=== PATIENT | female | born 1985 | race African-American/Black ===

== ENCOUNTER 2018-10-31 18:55 | Inpatient (IN) | payer OTHER ==
[2018-10-31] MEDS: ELECTROLYTE-148 SOLN 1,000 ML IV SCH (19:45)
[2018-10-31 19:48] VITALS: BMI 39.6
[2018-10-31] MEDS ORDERED: DINOPROSTONE 10 MG VAGINAL SUPPOSITORY VG ONE (20:00)
[2018-10-31] MEDS ORDERED: LABETALOL HCL 5 MG/1 ML (100MG/20 ML VIAL) ONE (20:12)
[2018-10-31 20:15] LABS: BASO % 0.6 % (0-2.0); EOS % 0.5 % (0-4.5); HEMATOCRIT 34.7 % (32.4-45.2); INR 0.94 (0.83-1.09); MCH 31.1 pg (25.7-33.7); MCHC 34.5 g/dl (32.0-36.0); MEAN PLT VOLUME 9.5 fl (7.5-11.1); MONO % 10.3 % (3.8-10.2); NEUT % 66.6 % (42.8-82.8); PLATELET COUNT 232 K/MM3 (134-434); PROTHROMBIN TIME (PATIENT) 11.1 SEC (9.7-13.0); RBC 3.85 M/mm3 (3.60-5.2); RDW 15.6 % (11.6-15.6); RETICULOCYTES 2.69 % (0.5-1.5); WHITE BLOOD COUNT 10.2 K/mm3 (4.0-10.0)
[2018-10-31 20:18] LABS: ACTIVATED PTT 31.1 SECONDS (25.2-36.5)
[2018-10-31] MEDS ORDERED: LABETALOL HCL 5 MG/1 ML (100MG/20 ML VIAL) IVPUSH ONE (20:29)
--- NOTE | 2018-10-31 20:34 | HP ---
"Past Medical History - Admission History of Present Illness: 32 yo @ 37 0/7 wks, EDC 11/21/2018 presenting for induction of labor for gestational hypertension complicated by: 1. gestational hypertension, likely underlying chronic hypertension Elevated BPs noted first trimester, with continued elevation throughout the Recent Bps in the office 160-170s / 90-100s 24 H urine protein: 66 (06/03/2018); 171mg (08/25/2018); 294 (09/18/2018); 188 (10/15) 2. Obesity - Starting BMI 34 22 lb wt gain this EFW 10/29/2018 - 3500 (91%ile) Early GCT 156 --> GTT 77|165|151|107 GTT 26 wks 76|167|151|115 GTT 37 wks 16|163|162*|115 Patient presents for induction of labor for worsening gestational hypertension. She reports movement, denies leakage of fluid, vaginal bleeding or contractions. She denies headache, change in vision, RUQ pain or scotomata. History Source: Patient Limitations to Obtaining History: No Limitations - Past Medical History Cardiovascular: Yes: HTN (possible cHTN) ...: 1 ...Para: 0 ...Term: 0 ...: 0 ...Spon : 0 ...Induced : 0 ...Multiple Gestation: 0 ...LMP: 02/15/18 ... Weeks Gestation by Dates: 37.1 ...EDC by Dates: 11/22/18 ...EDC by Sono: 11/21/18 Heme/Onc: No: Anemia - Past Surgical History Past Surgical History: Yes: None Hx Myomectomy: No Hx Transabdominal Cerclage: No - Smoking History Smoking history: Never smoked - Alcohol/Substance Use Hx Alcohol Use: No History of Substance Use: reports: None - Social History History of Recent Travel: No Home Medications - Allergies Allergies/Adverse Reactions: Allergies Allergy/AdvReac Type Severity Reaction Status Date / Time No Known Allergies Allergy Verified 10/09/18 18:15 - Home Medications Home Medications: Ambulatory Orders Prenat 115/Iron Fum/Folic/Dss [ 19 Tablet] 1 tab PO DAILY 10/09/18 Family Disease History - Family Disease History Family History: Denies Review of Systems - Review of Systems Constitutional: reports: No Symptoms Cardiovascular: reports: No Symptoms Respiratory: reports: No Symptoms Gastrointestinal: reports: No Symptoms Musculoskeletal: reports: No Symptoms Neurological: reports: No Symptoms Psychiatric: reports: No Symptoms Physical Exam - Maternity Vital Signs: Vital Signs Temperature 98.5 F 10/31/18 18:55 Pulse Rate 97 H 10/31/18 18:55 Respiratory Rate 18 10/31/18 18:55 Blood Pressure 180/102 H 10/31/18 18:55 O2 Sat by Pulse Oximetry (%) Constitutional: Yes: Well Nourished, No Distress, Calm Cardiovascular: Yes: Regular Rate and Rhythm Lungs: Clear to auscultation - Abdominal Exam/OB Fundal Height: 40 Number of Fetuses: Single Contractions: Yes Regularity: Irregular Heart Rate (range): 140 Category: I Accelerations: Non-Uniform Decelerations: None - Vaginal Exam/OB Vaginal Bleediing: No Dilatation (cm): 1 Effacement (%): 20 Amniotic Membrane Status: Intact Meconium: Light Station: -4 - Labs Lab Results: CBC, BMP 10/31/18 19:50 PNL - O positive, antibody negative; RPR NR; HIV neg; HBs Ag neg; HCV negative; Hb Sepideh AA; Parvo non-immune; Sequential 1&2 WNL; declines inheritest; GCT/GTT as above; GBS positive Hemorrhage Risk Assessment - Risk Factors Medium Risk Factors: Yes: None High Risk Factors: Yes: None Risk Score: 1 Risk Level: Medium Risk Assessment/Plan 32 yo @ 37 0/7 wks induction of labor for gestational hypertension 1. Admit to L&D 2. Consents reviewed and signed Risks of induction including but not limited to failure, delivery, uterine hyperstimulation leading to heart rate changes discussed. Cervidil placed in posterior fornix. 3. Elevated Bps noted, currently asymptomatic Labetalol 20 mg IV push given Denies complaitns 4. GBS positive, will start ampicillin in active labor 5. Will offer pain medication upon patient request 6. Will proceed with expectant management"
[2018-10-31 20:35] LABS: ALBUMIN 2.6 g/dl (3.4-5.0); BILIRUBIN,TOTAL 0.3 mg/dL (0.2-1); BLOOD UREA NITROGEN 3.7 mg/dL (7-18); CREATININE 0.6 mg/dL (0.55-1.3); POTASSIUM 3.6 mmol/L (3.5-5.1); TOT PROT 6.4 g/dl (6.4-8.2); URIC ACID 4.8 mg/dL (2.6-7.2)
[2018-10-31 21:20] LABS: URINE APPEARANCE CLEAR; URINE BILIRUBIN NEGATIVE (NEGATIVE); URINE COLOR YELLOW; URINE GLUCOSE (UA) NEGATIVE (NEGATIVE); URINE KETONE NEGATIVE (NEGATIVE); URINE LEUK ESTERASE NEGATIVE (NEGATIVE); URINE NITRITE NEGATIVE (NEGATIVE); URINE PROTEIN NEGATIVE (NEGATIVE)
[2018-11-01] MEDS ORDERED: OXYTOCIN 30 UNITS in 0.9% NS 30 UNIT/500 ML INFUS.BAG IVPB ONE (11:20)
[2018-11-01] MEDS: ELECTROLYTE-148 SOLN 1,000 ML IV SCH ×2 (11:33→20:00)
[2018-11-01] MEDS ORDERED: AMPICILLIN - 2 GM in SODIUM CHLORIDE 100 ML IVPB ONE (11:40)
[2018-11-01] MEDS ORDERED: OXYTOCIN 30 UNITS in 0.9% NS 30 UNIT/500 ML INFUS.BAG IVPB SCH (11:45)
[2018-11-01] MEDS ORDERED: SODIUM CHLORIDE 100 ML IVPB ONE (11:47)
[2018-11-01] MEDS ORDERED: AMPICILLIN SODIUM 2 GM VIAL ONE (11:47)
--- NOTE | 2018-11-01 11:50 | PN ---
Ante-Partal Exam - Subjective Subjective: Pt w/o complaints. She denies any BALLESTEROS, scotoma, abdominal pain. She is not feeling contractions. Pt was induced last night due to chronic HTN with likely superimposed preeclampsia. Her BP in-office was 170/100 x 4. I discussed thec ase with MFM (Dr. Bah) yesterday and decision was to induce labor. Vital Signs: Vital Signs Temperature 98.2 F 11/01/18 11:35 Pulse Rate 85 11/01/18 11:15 Respiratory Rate 20 11/01/18 11:15 Blood Pressure 141/90 11/01/18 11:15 O2 Sat by Pulse Oximetry (%) Bleeding: No Headache: No Visual changes: No Right upper quadrant pain: No Pain (scale 1-10): 0 - Contractions Contractions: Yes Regularity: Irregular Intensity: Unaware Monitor Mode: External - Exam during Labor Heart Rate: 140 Variability: Moderate Heart Rate Location: Midline Category: I Monitor Accelerations: Present Monitor Decelerations: None Exam: Vaginal Dilatation (cm): 2 Effacement (%): 50 Amniotic Membrane Status: Intact Presentation: Vertex Station: -3 Remarks: Adequate gynecoid pelvimetry. EFW ~3500gm by Edin's. - Intrapartum Hemorrhage Risk Medium Risk Factors: None High Risk Factors: None Risk Score: 0 Risk Level: Low Risk - Assessment/Plan Assessment/Plan: 32yo P0 with at EGA 37w 1d admitted for labor indx. Pt with chronic HTN and superimposed PEC. BP is in 140-150/90 range. No other sx's of severe PEC. Fetus with Category I tracing. Pt is not in labor. Plan to induce labor with pitocin.
[2018-11-01] MEDS ORDERED: AMPICILLIN SODIUM 1 GM VIAL ONE ×3 (15:19→23:42)
[2018-11-01] MEDS: AMPICILLIN - 1 GM in SODIUM CHLORIDE 100 ML IVPB SCH ×3 (15:39→23:45)
--- NOTE | 2018-11-01 22:38 | PN ---
Ante-Partal Exam - Subjective Subjective: Pt w/o complaints. She reports feeling occasional mild contractions. Vital Signs: Vital Signs Temperature 98.4 F 11/01/18 20:00 Pulse Rate 90 11/01/18 21:00 Respiratory Rate 20 11/01/18 21:00 Blood Pressure 150/97 11/01/18 21:00 O2 Sat by Pulse Oximetry (%) Bleeding: No Headache: No Visual changes: No Right upper quadrant pain: No Pain (scale 1-10): 1 - Contractions Contractions: Yes Regularity: Regular Intensity: Mild Monitor Mode: External - Exam during Labor Heart Rate: 130 Variability: Moderate Heart Rate Location: Midline Category: I Monitor Accelerations: Present Monitor Decelerations: None Exam: Vaginal Dilatation (cm): 3 Effacement (%): 50 Amniotic Membrane Status: Ruptured (AROM) Amniotic Fluid: Clear Presentation: Vertex Station: -3 - Intrapartum Hemorrhage Risk Medium Risk Factors: None High Risk Factors: None Risk Score: 0 Risk Level: Low Risk - Assessment/Plan Assessment/Plan: BP is w/in acceptable range. Pt w/o sx's of PEC. Fetus with Category I tracing. AROM done. Plan to monitor labor.
[2018-11-02] MEDS ORDERED: FENTANYL/BUPIVACAINE/NS/PF - PCEA - 50 ML DISP.SYRIN EP ONE ×3 (01:19→07:57)
[2018-11-02] MEDS ORDERED: NALOXONE HCL 0.4 MG/ML VIAL IVPUSH PRN (01:32)
[2018-11-02] MEDS: FENTANYL/BUPIVACAINE/NS/PF - PCEA - 50 ML DISP.SYRIN EP SCH ×2 (01:55→08:05)
[2018-11-02] MEDS ORDERED: ELECTROLYTE-148 SOLN 1,000 ML IV ONE (03:30)
[2018-11-02] MEDS ORDERED: AMPICILLIN SODIUM 1 GM VIAL ONE ×2 (03:38→07:14)
[2018-11-02] MEDS: AMPICILLIN - 1 GM in SODIUM CHLORIDE 100 ML IVPB SCH ×2 (03:45→07:23)
[2018-11-02] MEDS ORDERED: CITRIC ACID/SODIUM CITRATE 30 ML UNIT-DOSE CUP PO ONE (08:30)
--- NOTE | 2018-11-02 08:43 | PN ---
Ante-Partal Exam - Subjective Subjective: No complaints. Pt feels contractions. Vital Signs: Vital Signs Temperature 98.6 F 11/02/18 06:00 Pulse Rate 98 H 11/02/18 07:00 Respiratory Rate 20 11/02/18 08:05 Blood Pressure 151/92 11/02/18 07:00 O2 Sat by Pulse Oximetry (%) 100 11/02/18 08:05 Bleeding: No Headache: No Visual changes: No Right upper quadrant pain: No Pain (scale 1-10): 5 - Contractions Contractions: Yes Regularity: Regular Intensity: Moderate Monitor Mode: External - Exam during Labor Heart Rate: 150 Variability: Moderate Heart Rate Location: Midline Category: II Monitor Accelerations: Present Monitor Decelerations: Late Exam: Vaginal Dilatation (cm): 5 Effacement (%): 80 Amniotic Membrane Status: Leaking Presentation: Vertex Station: -2 - Intrapartum Hemorrhage Risk Medium Risk Factors: None High Risk Factors: None Risk Score: 0 Risk Level: Low Risk - Assessment/Plan Assessment/Plan: Late decels not. Pitocin turned off and the late decels resolved. The tracing is now Category I. Pt is in early active labor. We discussed treatment options and I advised C/S. R /b/a of C/S were discussed.
[2018-11-02] MEDS ORDERED: LIDO 2%/EPI 1:200000 PRESRVFRE (20 ML SDVIAL) ONE (08:47)
[2018-11-02] MEDS ORDERED: ceFAZolin SODIUM 1 GM VIAL ONE (09:09)
[2018-11-02] MEDS ORDERED: OXYTOCIN 10 UNITS/ML VIAL ONE (09:24)
[2018-11-02] MEDS ORDERED: BUPIVACAINE HCL/PF 2.5 MG/ML - 30 ML VIAL IJ ONE (09:26)
[2018-11-02] MEDS ORDERED: OXYTOCIN 20 UNITS in 0.9% NS 20 UNIT/1,000 ML INFUS.BAG IV ONE (09:34)
[2018-11-02] MEDS ORDERED: morphine SULFATE/PF 0.5 MG/ML (2cc Syringe - QUVA) ONE ×3 (09:48)
[2018-11-02] MEDS ORDERED: IBUPROFEN 800 MG/8 ML IJ IVPB PRN (10:21)
[2018-11-02] MEDS ORDERED: oxyCODONE HCL 5 MG TABLET PO PRN (10:21)
[2018-11-02] MEDS ORDERED: BENZOCAINE 28 GM HEMORRHOIDAL OINTMENT TP PRN (10:21)
[2018-11-02] MEDS ORDERED: BENZOCAINE 20% 57 GM BOTTLE TP PRN (10:21)
[2018-11-02] MEDS ORDERED: WITCH HAZEL 50% (TUCKS) 40 PAD/JAR PAD TP PRN (10:21)
--- NOTE | 2018-11-02 10:34 | OP ---
Operative Note - Note: Operative Date: 11/02/18 Pre-Operative Diagnosis: at EGA 37w2d with cHTN and superimposed PEC. Non-reassuring FHT Operation: Primary LT C/S Findings: Live baby boy in vtx presentation. No meconium in amniotic fluid. 9-9. Wt 7lb 7oz. Normal uterus, ovaries, tubes. Post-Operative Diagnosis: Same as Pre-op Surgeon: Albert Meadows Manager Floor: Sarina Del Valle Anesthesiologist/SURGICAL RESIDENT: Rayshawn Wells Anesthesia: Epidural Specimens Removed: Placenta Estimated Blood Loss (mls): 700 Drains & Tubes with Location: Ramos cath Drains, Volume Out (mls): 200 Blood Volume Replaced (mls): 0 Fluid Volume Replaced (mls): 1,000 Operative Report Dictated: Yes
[2018-11-02] MEDS ORDERED: ONDANSETRON 4 MG/2 ML VIAL IVPUSH PRN (10:57)
[2018-11-02] MEDS: OXYTOCIN 20 UNITS in 0.9% NS 20 UNIT/1,000 ML INFUS.BAG IV SCH ×2 (11:07→19:13)
[2018-11-02] MEDS: NIFEdipine E.R. 30 MG TABLET (FP) PO SCH (12:38)
--- NOTE | 2018-11-02 12:49 | OP ---
DATE OF OPERATION: 11/02/2018 PREOPERATIVE DIAGNOSIS: at estimated gestational age of 37 weeks 2 days with chronic hypertension and superimposed preeclampsia, non-reassuring heart tracing. POSTOPERATIVE DIAGNOSIS: at estimated gestational age of 37 weeks 2 days with chronic hypertension and superimposed preeclampsia, non-reassuring heart tracing. PROCEDURE: Primary low-transverse section via Pfannenstiel skin incision. SURGEON: Albert Meadows MD GARMENT SEWING MACHINE OPERATOR: Sarina Del Valle MD ANESTHESIOLOGIST: Rayshawn Wells MD ANESTHESIA: Epidural. COMPLICATIONS: None. ESTIMATED BLOOD LOSS: 700 mL. URINE OUTPUT: 200 mL. INTRAVENOUS FLUIDS: 1000 mL. PATHOLOGY: Placenta. FINDINGS: Live baby boy in vertex presentation, no meconium in amniotic fluid, Apgars 9 and 9, weight 7 pounds 7 ounces. Normal uterus, ovaries, and fallopian tubes. DESCRIPTION OF PROCEDURE: The patient was met preoperatively. Risks, benefits, and alternatives of surgery were discussed in detail. All questions were answered. The patient was brought to the OR with IV running. She was placed on a surgical table in the supine position with a leftward tilt. The level of epidural anesthesia was checked and found to be adequate. The patient was prepped and draped in the usual sterile fashion. A Ramos catheter was left to drain to gravity. The timeout was conducted as per standard protocol. The surgeons then proceeded with the operation. A Pfannenstiel skin incision was made with the knife approximately 2 cm above the pubic symphysis. The incision was carried down to the level of fascia. The fascia was incised in the midline. The incision was extended bilaterally using Schreiber scissors. The fascia was dissected away from the rectus muscles superiorly and inferiorly using sharp dissection. The rectus muscles were in the midline using blunt dissection. The peritoneum was identified and entered sharply. The peritoneal incision was extended superiorly and inferiorly using Metzenbaum scissors. The bladder peritoneum was dissected away from the lower uterine segment using sharp dissection. The bladder was reflected downwards with a Austin retractor. The lower uterine segment was incised transversely. The incision was extended bilaterally. The baby was then delivered from vertex presentation and without complications. The baby's mouth and nose were suctioned at delivery. The baby was crying spontaneously. The umbilical cord was clamped and cut. The baby was handed to the awaiting post closing specialist. A segment of the umbilical cord was secured for umbilical cord gases. The placenta was then delivered manually and without complications. The uterus was cleared of all clots and debris using laparotomy laps. The uterine incision was repaired using a 0 Biosyn suture with a running and locking stitch. Good hemostasis was noted. The uterine incision was then imbricated using a secondary layer of closure with a 0 Biosyn suture. Once again good hemostasis was confirmed. The bladder peritoneum was closed with a 0 Biosyn suture. The operative site was irrigated using copious amounts of normal saline. Once again, good hemostasis was confirmed. The parietal peritoneum was closed using a 2-0 Vicryl suture. The rectus muscles were approximated using several interrupted 2-0 Vicryl sutures. The fascia was closed using a 0 Vicryl suture with a running stitch. The subcutaneous adipose tissues and Oj fascia were closed using several interrupted 0 Vicryl sutures. The skin was closed with a 4-0 Biosyn suture using a subcutaneous stitch. The patient tolerated the procedure well. Sponge, lap, needle counts were correct. The patient then transferred to recovery room in stable condition and awake. July [id number]
[2018-11-02] MEDS ORDERED: LABETALOL HCL 200 MG TABLET (FP) PO STA (18:54)
[2018-11-03] MEDS: LABETALOL HCL 200 MG TABLET (FP) PO PRN ×2 (06:42→18:33)
[2018-11-03 08:53] LABS: BASO % 0.3 % (0-2.0); EOS % 0.1 % (0-4.5); HEMATOCRIT 34.7 % (32.4-45.2); HEMOGLOBIN 11.6 GM/dL (10.7-15.3); LYMPH % 9.3 % (8-40); MCH 30.3 pg (25.7-33.7); MCHC 33.5 g/dl (32.0-36.0); MEAN CELL VOLUME 90.4 fl (80-96); MEAN PLT VOLUME 9.7 fl (7.5-11.1); MONO % 6.7 % (3.8-10.2); NEUT % 83.6 % (42.8-82.8); PLATELET COUNT 221 K/MM3 (134-434); RBC 3.84 M/mm3 (3.60-5.2); RDW 15.3 % (11.6-15.6); WHITE BLOOD COUNT 18.3 K/mm3 (4.0-10.0)
[2018-11-03] MEDS: ENOXAPARIN NA (PORCINE) 40 MG/0.4 ML DISP.SYRIN SQ SCH (09:15)
[2018-11-03] MEDS: NIFEdipine E.R. 30 MG TABLET (FP) PO SCH (09:15)
[2018-11-03] MEDS: PRENATAL VITAMINS W/ FOLIC ACID TABLET (FP) PO SCH (09:27)
[2018-11-03] MEDS ORDERED: BISACODYL 10 MG SUPP.RECT RC PRN (10:22)
[2018-11-03] MEDS: ACETAMINOPHEN 325 MG TABLET (FP) PO PRN (17:57)
[2018-11-03] MEDS: SIMETHICONE 80 MG TAB.CHEW (FP) PO PRN (17:57)
[2018-11-03] MEDS: IBUPROFEN 600 MG TABLET (FP) PO PRN (17:58)
[2018-11-03] MEDS: OXYTOCIN 20 UNITS in 0.9% NS 20 UNIT/1,000 ML INFUS.BAG IV SCH (20:08)
--- NOTE | 2018-11-03 21:22 | PN ---
Post Progress Note - Subjective Subjective: Patient without acute complaints. Reports tolerating oral intake without nausea or vomiting. Ambulating without dizziness. Denies fevers or chills. Pain well controlled with oral pain medication. Pumping/breast feeding without issue. No flatus, no BM yet. Post Day: 1 Type of Delivery: Primary C/S Vital Signs: Vital Signs Temperature 99.5 F 11/03/18 18:00 Pulse Rate 92 H 11/03/18 18:00 Respiratory Rate 20 11/03/18 18:00 Blood Pressure 152/85 11/03/18 18:00 O2 Sat by Pulse Oximetry (%) 100 11/02/18 11:45 Breast Exam: Yes: Soft Uterus: Yes: Fundus Firm, Fundus @ umbilicus Incision: Yes: Sutures intact Abdomen/GI: Yes: Abdomen soft, Tolerating PO Lochia: Yes: Rubra Lochia, amount: Small Extremities: Yes: Calves non-tender, Edema Perineum: Yes: Intact Activity: Ambulating - Labs Labs: CBC WBC 18.3 K/mm3 (4.0-10.0) H 11/03/18 07:45 RBC 3.84 M/mm3 (3.60-5.2) 11/03/18 07:45 Hgb 11.6 GM/dL (10.7-15.3) 11/03/18 07:45 Hct 34.7 % (32.4-45.2) 11/03/18 07:45 MCV 90.4 fl (80-96) 11/03/18 07:45 MCH 30.3 pg (25.7-33.7) 11/03/18 07:45 MCHC 33.5 g/dl (32.0-36.0) 11/03/18 07:45 RDW 15.3 % (11.6-15.6) 11/03/18 07:45 Plt Count 221 K/MM3 (134-434) 11/03/18 07:45 MPV 9.7 fl (7.5-11.1) 11/03/18 07:45 Absolute Neuts (auto) 15.3 K/mm3 (1.5-8.0) H 11/03/18 07:45 Neutrophils % 83.6 % (42.8-82.8) H D 11/03/18 07:45 Lymphocytes % 9.3 % (8-40) D 11/03/18 07:45 Monocytes % 6.7 % (3.8-10.2) 11/03/18 07:45 Eosinophils % 0.1 % (0-4.5) 11/03/18 07:45 Basophils % 0.3 % (0-2.0) 11/03/18 07:45 Nucleated RBC % 0 % (0-0) 11/03/18 07:45 Retic Count 2.69 % (0.5-1.5) H 10/31/18 19:50 Haptoglobin 114 mg/dL (34-200) 10/31/18 19:50 Assessment/Plan 32yo P1 s/p primary LT C/S, doing well stable, afebrile. BP elevated. She was given labetalol in addition to Procardia. Will change to labetalol and titrate dosing. care instructions reviewed. Continue routine postop care. Ambulation encouraged.
[2018-11-03] MEDS: LABETALOL HCL 100 MG TABLET (FP) PO SCH (21:56)
[2018-11-04] MEDS: SIMETHICONE 80 MG TAB.CHEW (FP) PO PRN ×2 (07:42→20:25)
[2018-11-04] MEDS: IBUPROFEN 600 MG TABLET (FP) PO PRN ×2 (07:42→20:25)
[2018-11-04] MEDS: ACETAMINOPHEN 325 MG TABLET (FP) PO PRN ×2 (07:43→20:26)
--- NOTE | 2018-11-04 08:31 | PN ---
Post Progress Note - Subjective Subjective: Patient without acute complaints. Reports tolerating oral intake without nausea or vomiting. Ambulating without dizziness. Denies fevers or chills. Pain well controlled with oral pain medication. Pumping/breast feeding without issue. No flatus. Post Day: 2 Type of Delivery: Primary C/S Vital Signs: Vital Signs Temperature 98.1 F 11/03/18 22:00 Pulse Rate 87 11/04/18 06:00 Respiratory Rate 18 11/04/18 06:00 Blood Pressure 135/83 11/04/18 06:00 O2 Sat by Pulse Oximetry (%) 100 11/02/18 11:45 Breast Exam: Yes: Soft Uterus: Yes: Fundus Firm, Fundus below umbilicus, Non-tender Incision: Yes: Sutures intact Abdomen/GI: Yes: Abdomen soft, Tolerating PO Lochia, amount: Small Extremities: Yes: Calves non-tender, Edema Perineum: Yes: Intact Activity: Ambulating - Labs Labs: CBC WBC 18.3 K/mm3 (4.0-10.0) H 11/03/18 07:45 RBC 3.84 M/mm3 (3.60-5.2) 11/03/18 07:45 Hgb 11.6 GM/dL (10.7-15.3) 11/03/18 07:45 Hct 34.7 % (32.4-45.2) 11/03/18 07:45 MCV 90.4 fl (80-96) 11/03/18 07:45 MCH 30.3 pg (25.7-33.7) 11/03/18 07:45 MCHC 33.5 g/dl (32.0-36.0) 11/03/18 07:45 RDW 15.3 % (11.6-15.6) 11/03/18 07:45 Plt Count 221 K/MM3 (134-434) 11/03/18 07:45 MPV 9.7 fl (7.5-11.1) 11/03/18 07:45 Absolute Neuts (auto) 15.3 K/mm3 (1.5-8.0) H 11/03/18 07:45 Neutrophils % 83.6 % (42.8-82.8) H D 11/03/18 07:45 Lymphocytes % 9.3 % (8-40) D 11/03/18 07:45 Monocytes % 6.7 % (3.8-10.2) 11/03/18 07:45 Eosinophils % 0.1 % (0-4.5) 11/03/18 07:45 Basophils % 0.3 % (0-2.0) 11/03/18 07:45 Nucleated RBC % 0 % (0-0) 11/03/18 07:45 Retic Count 2.69 % (0.5-1.5) H 10/31/18 19:50 Haptoglobin 114 mg/dL (34-200) 10/31/18 19:50 Assessment/Plan 32yo P1 s/p primary LT C/S, doing well stable, afebrile. BP normal today. Will hold labetalol for now and titrate dosing. care instructions reviewed. Continue routine postop care. Ambulation encouraged.
[2018-11-04] MEDS: ENOXAPARIN NA (PORCINE) 40 MG/0.4 ML DISP.SYRIN SQ SCH (10:38)
[2018-11-04] MEDS: PRENATAL VITAMINS W/ FOLIC ACID TABLET (FP) PO SCH (10:39)
[2018-11-04] MEDS: LABETALOL HCL 100 MG TABLET (FP) PO SCH ×2 (10:39→22:03)
[2018-11-05 07:59] LABS: BASO % 0.4 % (0-2.0); EOS % 1.9 % (0-4.5); HEMATOCRIT 31.9 % (32.4-45.2); HEMOGLOBIN 10.7 GM/dL (10.7-15.3); LYMPH % 20.2 % (8-40); MCHC 33.7 g/dl (32.0-36.0); MEAN CELL VOLUME 92.1 fl (80-96); MONO % 8.1 % (3.8-10.2); NEUT % 69.4 % (42.8-82.8); PLATELET COUNT 260 K/MM3 (134-434); RBC 3.46 M/mm3 (3.60-5.2); RDW 15.3 % (11.6-15.6); WHITE BLOOD COUNT 9.7 K/mm3 (4.0-10.0)
[2018-11-05] MEDS: SIMETHICONE 80 MG TAB.CHEW (FP) PO PRN (07:59)
[2018-11-05] MEDS: IBUPROFEN 600 MG TABLET (FP) PO PRN (07:59)
[2018-11-05] MEDS: ACETAMINOPHEN 325 MG TABLET (FP) PO PRN (08:00)
[2018-11-05] MEDS: ENOXAPARIN NA (PORCINE) 40 MG/0.4 ML DISP.SYRIN SQ SCH (10:06)
[2018-11-05] MEDS: LABETALOL HCL 100 MG TABLET (FP) PO SCH (10:07)
[2018-11-05] MEDS: PRENATAL VITAMINS W/ FOLIC ACID TABLET (FP) PO SCH (10:07)
[2018-11-05 10:49] VITALS: TEMP 98.1
--- NOTE | 2018-11-05 14:59 | DS ---
Physical Exam-FARM EQUIPMENT SERVICE TECHNICIAN Vital Signs: Vital Signs Temperature 98.1 F 11/05/18 10:00 Pulse Rate 81 11/05/18 10:00 Respiratory Rate 18 11/05/18 10:00 Blood Pressure 142/89 11/05/18 10:00 O2 Sat by Pulse Oximetry (%) 100 11/02/18 11:45 Constitutional: Yes: Well Nourished, No Distress, Calm Eyes: Yes: WNL, Conjunctiva Clear HENT: Yes: WNL, Atraumatic, Normocephalic Neck: Yes: WNL, Supple, Trachea Midline Cardiovascular: Yes: WNL, Regular Rate and Rhythm Respiratory: Yes: WNL, Regular, CTA Bilaterally Gastrointestinal: Yes: Normal Bowel Sounds, Soft, Abdomen, Obese ...Rectal Exam: Yes: Deferred Renal/: Yes: WNL External Genitalia: Yes: Normal Internal Exam Deferred: Yes ....Post : Yes: Uterus firm, Uterus non-tender Breast(s): Yes: WNL Musculoskeletal: Yes: WNL Extremities: Yes: WNL Edema: Yes Edema: LLE: Trace, RLE: Trace Integumentary: Yes: WNL Wound/Incision: Yes: Clean/Dry, Well Approximated, Steri Strips, Open to air Neurological: Yes: WNL, Alert, Oriented ...Motor Strength: WNL Psychiatric: Yes: WNL, Alert, Oriented Labs: CBC, BMP 11/05/18 07:00 10/31/18 19:50 Delivery - Delivery Section: Primary, Low Flap Transverse Type of Anesthesia: Epidural Episiotomy/Laceration: None EBL (cc): 500 Delivery, Single - Stages of Labor Date 1st Stage Initiatied: 11/02/18 Time 1st Stage Initiated: 00:00 Date of Delivery: 11/02/18 Time of Delivery: 09:31 Date Placenta Delivered: 11/02/18 Time Placenta Delivered: 09:32 Placenta: Yes: Spontaneous, Manual Removal, Normal Configuration - Condition of Dough Mixer Operator/Fork Truck Driver Present: Yes Name: Oleg Braga Infant Gender: Male Weight: 3.374 kg Total Hours ROM (Hrs/Mins): 11/12 - 1 Minute Total Score: 9 5 Minutes Total Score: 9 - [place] Feeding Plan Initial Plan: Elected not to breastfeed exclusively throughout hospitalization Benefits of Exclusively reinforced: Yes Discharge Summary Reason For Visit: INDUCTION at EGA 37w2d with chronic HTN and superimposed preeclampsia. Procedures: Principal: Primary LT C/S Other Procedures: labor indx Hospital Course: Normal recovery. BP well controlled with Labetolol Condition: Good - Instructions Diet, Activity, Other Instructions: Physical activity Resume your normal everyday activity as tolerated no heavy lifting or exercise until seen by your surgeon. You may walk unlimited [place] of and climb stairs. You may resume driving the car when you feel safe and comfortable behind the wheel. No sexual activity as instructed. Wound care If you have a bandage, leave it on, and keep dry for 48-72 hours. After that time discard the outer bandage. If they are tapes on the skin under the out of bandage leave them in place. They will peel off in the next 7 to 10 days. Do Not Peel them off. You may shower the day after surgery. If there are tapes present on the skin, you may shower over them. Diet There are no dietary restrictions. Eat healthy, high-fiber foods. Drink 6 to 8 glasses of liquid each day. This will assist in keeping your bowels are regular. Pain management You may take Tylenol or acetaminophen or Ibuprofen (for example, Motrin, Advil etc.) from my pain prescription medication is ordered should be taken as prescribed for moderate to severe pain. Call MD for any of the following: Severe pain not relieved by medication Fever of 101 or higher Excessive bleeding or drainage on dressing Inability to urinate Referrals: Shara Benitez MD [Staff Physician] - Albert Meadows MD [Staff Physician] - Disposition: HOME - Home Medications Comprehensive Discharge Medication List: Ambulatory Orders Prenat 115/Iron Fum/Folic/Dss [ 19 Tablet] 1 tab PO DAILY 10/09/18
[2018-11-05 16:14] VITALS: BP 125/87; PULSE 82
--- NOTE | 2018-11-06 17:36 | PATH ---
Surgical Pathology Report Patient Name: INA COLES [facility]. Rec. #: [id number] /Age/Gender: 1985 (Age: 32) / F Account: [id number] Location: [facility] OBS/EMPLOYMENT INTERVIEWER Taken: 11/04/2018 Received: 11/04/2018 Reported: 11/06/2018 Physicians: Albetr Meadows M.D. Specimen(s) Received PLACENTA Clinical History , primary Final Diagnosis PLACENTA: THIRD TRIMESTER PLACENTA. TRIVASCULAR CORD. MEMBRANES WITH NO DIAGNOSTIC ABNORMALITIES. Electronically Signed Ned Arias M.D. Gross Description The specimen is received fresh labeled placenta and is a 517 gram, 19 x17 x 2.1cm. placenta with attached membranes and umbilical cord. The attached membranes are glistening, translucent, and insert marginally. The umbilical cord measures 18 cm. in length and averages 1.5 cm. in diameter. The cord inserts centrally, 6 centimeter to the nearest margin. No true knots or strictures are identified. Cut surface of the umbilical cord reveals 3 vessels. Sectioning reveals red-brown, spongy parenchyma. No lesions are identified. Tile Picker sections are submitted in three cassettes as follows: 1- membrane rolls and umbilical cord; 2-3- full thickness sections of placenta KWAdrian/11/05/2018 vikki/11/05/2018
== END 2018-11-05 16:00 | disposition home or self-care (01) | DRG 788 ==
LOC: JLDR 18:55 → J3W 11-02 12:00
PROVIDERS: ADMIT Obstetrics & Gynecology; ATTEND Obstetrics & Gynecology
PROC: 3E0P7VZ Introduction of Hormone into Female Reproductive, Via Natural or Artificial Opening (ICD-10-PCS; 2018-10-31)
PROC: 3E033VJ Introduction of Other Hormone into Peripheral Vein, Percutaneous Approach (ICD-10-PCS; 2018-10-31)
PROC: 10D00Z1 Extraction of Products of Conception, Low, Open Approach (ICD-10-PCS; principal; 2018-11-02)
DX: O11.4 Pre-existing hypertension with pre-eclampsia, complicating childbirth (principal); O10.02 Pre-existing essential hypertension complicating childbirth; O76 Abnormality in fetal heart rate and rhythm complicating labor and delivery; O99.824 Streptococcus B carrier state complicating childbirth; O99.214 Obesity complicating childbirth; E66.9 Obesity, unspecified; Z3A.37 37 weeks gestation of pregnancy; Z37.0 Single live birth
CPT/HCPCS: 36415; 36600; 80053; 81003; 82803; 82977; 83010; 84550; 85025; 85044; 85610; 85730; 86593; 86762; 86850; 86900; 86901; 88307-TC